=== PATIENT | male | born 1965 | race Caucasian/White ===

== ENCOUNTER 2017-11-09 16:11 | Emergency (ER) | payer OTHER ==
[~2017-11-09] VITALS: Ht 185.4 cm; Wt 127.0 kg
[~2017-11-09 16:11] MED LIST: ACETAMINOPHEN325 M1 PO; ADVAIR 250-501 EACH IH; ADVAIR HFA 230M12 GM INH; ADVAIR PO; ASPIRIN 81 MG T81 MG PO; BENZTROPINE ME0.5 MG PO; CELEXA 20 MG TA20 M1 PO; COUMADIN 1MG TAB1 M1 PO; COUMADIN6 MG PO; COUMADIN7.5 MG PO; GUAIF-DM-PSE S120 ML PO; HALDOL5 MG/1 ML IM; HALOPERIDOL 5 MG5 MG PO; LATUDA80 MG PO; LISINOPRIL10 MG PO; LOPRESSOR 12.12.5 MG PO; LORAZEPAM 22 MG/1 ML IM; MAGOX 400400 MG PO; NORVASC5 MG PO; OXCARBAZEPINE300 M1 PO; OXCARBAZEPINE600 MG PO; RISPERDAL 3 MG T3 M1 PO; RISPERDAL37.5 MG/2 IM; TRILEPTAL 300300 MG PO
[2017-11-09 16:32] LABS: HEMATOCRIT 32.7 % (42.0-52.0); HEMOGLOBIN 11.5 gm/dL (14.0-18.0); MCH 33.2 pg (26.0-34.0); MCHC 35.3 g/dL (28.0-37.0); PLATELET COUNT 177 thou/uL (150-400); RBC 3.47 mil/uL (4.50-6.00); RDW 13.5 % (10.5-14.5); WBC 5.5 thou/uL (4.0-11.0)
[2017-11-09] MEDS ORDERED: TRILEPTAL 300300 MG PO (16:34)
[2017-11-09] MEDS ORDERED: ANTIVERT25 MG PO (16:35)
[2017-11-09] MEDS ORDERED: IMDUR 30 MG TAB30 M1 PO (16:38)
[2017-11-09 16:45] LABS: CALCIUM 8.6 mg/dL (8.5-10.1); CREATININE 0.8 mg/dL (0.7-1.3); POTASSIUM 4.1 mmol/L (3.5-5.1)
[2017-11-09 16:51] LABS: ALBUMIN 3.5 g/dL (3.4-5.0); TOTAL BILIRUBIN 0.5 mg/dL (<0.1-1.0); TOTAL PROTEIN 6.6 g/dL (6.4-8.2)
[2017-11-09 17:03] LABS: ANISOCYTOSIS 1+; BURR CELLS 1+
[2017-11-09 18:00] LABS: INR 1.8; PROTIME 17.8 Seconds (9.3-11.4)
[2017-11-09 18:18] LABS: URINE BILIRUBIN NEGATIVE (Negative); URINE BLOOD 1+ (Negative); URINE CLARITY CLEAR; URINE COLOR YELLOW; URINE GLUCOSE-RANDOM* NEGATIVE (Negative); URINE KETONES NEGATIVE (Negative); URINE PROTEIN (DIPSTICK) TRACE (Negative); URINE UROBILINOGEN 0.2 E.U./dl (0.2-1.0)
[2017-11-09 18:20] LABS: URINE LEUKOCYTES-REFLEX 3+ (Negative); URINE NITRITE-REFLEX POSITIVE (Negative)
[2017-11-09 18:35] LABS: BACTERIA-REFLEX >30 Many /HPF (None Seen); CASTS None Seen /LPF (None Seen); CRYSTALS None Seen /LPF (None Seen); SQUAMOUS 4-10 Moderate /LPF (0-3); URINE RBC 3-10 Few /HPF (0-2)
[2017-11-09 18:36] LABS: WBC CLUMPS Moderate (None Seen)
[2017-11-09] MEDS ORDERED: BACTRIM DS TAB1 EACH PO (18:55)
== END 2017-11-09 19:54 ==
LOC: ER 16:11
PROVIDERS: Physician Assistant
DX: E87.1 Hypo-osmolality and hyponatremia (principal); D53.9 Nutritional anemia, unspecified; N39.0 Urinary tract infection, site not specified; E11.9 Type 2 diabetes mellitus without complications; I48.91 Unspecified atrial fibrillation; I10 Essential (primary) hypertension; F41.9 Anxiety disorder, unspecified; J44.9 Chronic obstructive pulmonary disease, unspecified

== ENCOUNTER 2018-03-19 14:49 | Emergency (ER) | payer OTHER ==
[~2018-03-19] VITALS: Ht 205.7 cm; Wt 104.3 kg
[~2018-03-19 14:49] MED LIST changes: +ANTIVERT25 MG PO; +BACTRIM DS TAB1 EACH PO; +IMDUR 30 MG TAB30 M1 PO
[2018-03-19 16:20] LABS: ABSOLUTE NEUTROPHILS 2.8 thou/uL (1.4-8.2); EOSINOPHILS 0.9 % (0.0-3.0); HEMATOCRIT 28.7 % (42.0-52.0); HEMOGLOBIN 10.4 gm/dL (14.0-18.0); LYMPHOCYTES 25.2 % (24.0-44.0); MCH 33.4 pg (26.0-34.0); MCHC 36.1 g/dL (28.0-37.0); MCV 92.4 fL (80.0-100.0); MONOCYTES 11.1 % (1.0-8.0); PLATELET COUNT 180 thou/uL (150-400); POLYS 61.8 % (36.0-66.0); RBC 3.11 mil/uL (4.50-6.00); RDW 13.3 % (10.5-14.5); WBC 4.6 thou/uL (4.0-11.0)
[2018-03-19 16:27] LABS: CALCIUM 8.5 mg/dL (8.5-10.1); CREATININE 0.7 mg/dL (0.7-1.3)
[2018-03-19 16:33] LABS: ALBUMIN 3.3 g/dL (3.4-5.0); TOTAL BILIRUBIN 0.5 mg/dL (<0.1-1.0); TOTAL PROTEIN 6.3 g/dL (6.4-8.2)
[2018-03-19 16:41] LABS: PROTIME 76.5 Seconds (9.3-11.4)
[2018-03-19 16:43] LABS: INR 7.7
== END 2018-03-19 17:50 | disposition home or self-care (01) ==
LOC: ER 14:49
PROVIDERS: Physician Assistant
DX: I82.402 Acute embolism and thrombosis of unspecified deep veins of left lower extremity (principal); R79.1 Abnormal coagulation profile; E87.1 Hypo-osmolality and hyponatremia; E11.9 Type 2 diabetes mellitus without complications; I48.91 Unspecified atrial fibrillation; F20.9 Schizophrenia, unspecified; I10 Essential (primary) hypertension; F41.9 Anxiety disorder, unspecified; J44.9 Chronic obstructive pulmonary disease, unspecified

== ENCOUNTER 2018-09-06 19:46 | Inpatient (IN) | payer OTHER ==
[~2018-09-06] VITALS: Ht 190.5 cm; Wt 117.9 kg
[2018-09-06 19:48] VITALS: BP 140/101
[2018-09-06 20:20] LABS: ABSOLUTE NEUTROPHILS 2.1 thou/uL (1.4-8.2); EOSINOPHILS 2.1 % (0.0-3.0); HEMATOCRIT 32.4 % (42.0-52.0); HEMOGLOBIN 11.3 gm/dL (14.0-18.0); LYMPHOCYTES 38.5 % (24.0-44.0); MCH 32.7 pg (26.0-34.0); MCHC 34.7 g/dL (28.0-37.0); MCV 94.1 fL (80.0-100.0); PLATELET COUNT 136 thou/uL (150-400); POLYS 49.4 % (36.0-66.0); RBC 3.45 mil/uL (4.50-6.00); RDW 14.3 % (10.5-14.5); WBC 4.3 thou/uL (4.0-11.0)
[2018-09-06 20:27] LABS: CALCIUM 8.5 mg/dL (8.5-10.1); CREATININE 0.9 mg/dL (0.7-1.3); POTASSIUM 4.1 mmol/L (3.5-5.1)
[2018-09-06 20:40] LABS: INR 1.8; PROTIME 18.7 Seconds (9.3-11.4)
[2018-09-06 20:57] LABS: URINE BILIRUBIN NEGATIVE (Negative); URINE BLOOD NEGATIVE (Negative); URINE CLARITY CLEAR; URINE COLOR YELLOW; URINE GLUCOSE-RANDOM* NEGATIVE (Negative); URINE KETONES NEGATIVE (Negative); URINE PROTEIN (DIPSTICK) TRACE (Negative)
[2018-09-06 20:59] LABS: URINE LEUKOCYTES-REFLEX 2+ (Negative); URINE NITRITE-REFLEX POSITIVE (Negative)
[2018-09-06 21:05] LABS: AMP/METHAMP Negative (Negative); BARBITURATES Negative (Negative); BENZODIAZEPINES Negative (Negative); COCAINE Negative (Negative); METHADONE Negative (Negative); OPIATES Negative (Negative); PCP Negative (Negative)
[2018-09-06 21:12] LABS: CASTS None Seen /LPF (None Seen); MUCUS None Seen strn/LPF (None Seen); SQUAMOUS 0-3 Few /LPF (0-3); TRANSITIONAL EPITHEL CELL 0-3 Few /LPF (None Seen); URINE WBC-REFLEX >25 Many /HPF (0-5); WBC CLUMPS Few (None Seen)
[2018-09-06 21:13] LABS: BACTERIA-REFLEX >30 Many /HPF (None Seen); CRYSTALS None Seen /LPF (None Seen); URINE RBC 0-2 Rare /HPF (0-2)
[2018-09-07 00:18] VITALS: BP 130/90
[2018-09-07 01:04] VITALS: BP 144/91
--- NOTE | 2018-09-07 02:14 | NUR ---
PT WAS ADMITTED TO THE UNIT FROM THE ER IN A FAIR CONDITION.PT WAS LETHARGIC BUT EASILY AROUSABLE ON ADMIT.ASSESSMENT PARTIALLY DONE DUE TO PT'S MENTAL STATUS.PT INCONT OF BLADDER.PT ON HIS BED AT THIS TIME.FALL PRECAUTIONS IN PLACE,CALL LIGHT WITHIN REACH.
[2018-09-07 06:04] LABS: CALCIUM 8.6 mg/dL (8.5-10.1); CREATININE 0.7 mg/dL (0.7-1.3); POTASSIUM 4.4 mmol/L (3.5-5.1)
[2018-09-07 06:37] VITALS: BP 174/95
[2018-09-07 07:25] VITALS: BP 163/95
--- NOTE | 2018-09-07 10:16 | NUR ---
ASSUMED PT CARE AT 0700. ASSESSMENT COMPLETED AND IS CHARTED. BLOOD PRESSURE ELEVATED, VITALS OTHERWISE STABLE. PT IS ALERT/ORIENTED TO PERSON ONLY. PT IS VERY LETHARGIC BUT AROUNSES TO NAME AND LIGHT TOUCH. PT WAS ABLE TO WAKE UP AND EAT AND TAKE MEDS. PT DENIES PAIN. EXTERNAL URINARY CATHETER ORDERED FOR PT HE IN INCONTINENT AND POLYURIC. PT FLOODS ENTIRE BED WHEN URINATING. OTHERWISE NO NEW CONCERNS AT THIS TIME, WILL CONTINUE WITH CURRENT CARE.
[2018-09-07] MEDS ORDERED: RISPERDAL25 MG/2 ML IM (11:24)
[2018-09-07] MEDS ORDERED: RISPERDAL50 MG/2 ML IM (11:25)
[2018-09-07] MEDS ORDERED: COUMADIN 4 MG TA4 M1 PO (11:26)
[2018-09-07] MEDS ORDERED: COUMADIN 2.5MG2.5 M1 PO (11:26)
[2018-09-07] MEDS ORDERED: OXYBUTYNIN 5 MG5 M1 PO (11:27)
--- NOTE | 2018-09-07 12:06 | NUR ---
PT ADMITTED RELATED TO AMS. CM REVIEWED CHART AND SPOKE WITH CARE TEAM. CM ATTEMPTED TO VISIT WITH PT BUT HE HAS THE COVERS PULLED UP OVER HIS HEAD AND DIDN'T RESPOND TO KNOCKING. CM CALLED PT'S DPOA SISTER PATRICIA RIZZO WHO RESIDES IN [place] . SHE INDICATED SHE HADN'T BEEN NOTIFIED THAT HE WS IN THE HOSPITAL. SHE INDICATED HE HAS LIVED AT [facility] FOR ABOUT 10 YEARS AND THAT THEY WOULD ANTICIPATE PT RETURNING THERE UPON DISCHARGE. 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 SHE STATED THAT SUN, YAIR, TUES SHE CAN BE REACHED AT THE ABOVE NUMBER OR AT AND ASKE HER FOR. SHE WILL NEED TO BE NOTIFED PRIOR TO PT RETURNING TO [facility]. CLINICAL UPDATE SENT TO THE FACILITY. CM TO FOLLOW INDICATED WITH DC PLANNING.
--- NOTE | 2018-09-07 16:06 | NUR ---
PT MORE AWAKE THIS AFTERNOON. SITTING UP IN BED WATCHING TV. ROOM AIR O2 SAT IS 97%. IV FLUIDS DC'D ORDERED. EXTERNAL CATHETER DRAINING COPIOUS AMOUNTS OF CLEAR LIGHT YELLOW URINE. BLOOD PRESSURE BETTER AT 148/88. WILL CONTINUE TO MONITOR.
[2018-09-07 16:07] VITALS: BP 148/88
--- NOTE | 2018-09-07 17:06 | NUR ---
SHOULD PT BE MEDICALLY STABLE TO DISHARGE OVER THE WEEKEND ORDERS WILL NEED TO BE FAXED TO . CALL REPORT TO . CONTACT [employer] TO SCHEDULE TRANSPORT AT . PT'S SISTER AND DPOA WILL NEED TO BE NOTIFIED.
[2018-09-07 20:27] VITALS: BP 179/97
--- NOTE | 2018-09-08 01:13 | NUR ---
DIFFICULT TO UNDERSTAND PATIENT. HE IS ALERT TO SELF. GOT TO THE BSC -WITH SBA. HAD A LARGE BM.EXTERNAL CATH IN PLACE WITH LIGHT YELLOW OUTPUT.
[2018-09-08 04:33] VITALS: BP 162/89
[2018-09-08 04:41] LABS: INR 1.7; PROTIME 18.1 Seconds (9.3-11.4)
[2018-09-08 09:52] VITALS: BP 166/82
--- NOTE | 2018-09-08 10:59 | NUR ---
Alert and oriented to self.Assessment completed.vss.Pt in bed for breakfast. Good appetite.Dr Carias here,no new order noted.[place] catheter replaced. Pt up in chair with chair alarm on at present.No verbal c/o. Will continue to monitor.
[2018-09-08 16:45] VITALS: BP 122/75
[2018-09-08 20:07] VITALS: BP 123/91
--- NOTE | 2018-09-09 03:21 | NUR ---
PT REQUIRES SBA WITH ADLS. INCONTINENT OF BLADDER. [place] CATH CHANGED.PT IS ALERT TO SELF AND PLACE. DENIES PAIN. NO FURTHER ISSUES.
[2018-09-09 05:30] LABS: INR 1.9; PROTIME 19.5 Seconds (9.3-11.4)
[2018-09-09 05:52] VITALS: BP 174/98
--- NOTE | 2018-09-09 11:33 | NUR ---
Assumed pt care at 7am.Pt in bed resting without c/o.Assessment completed.vss. Pt tolerated meds and breakfast.Dr George here,order noted.[facility] will [facility] am.No verbal complaints at present.Will continue to monitor.
--- NOTE | 2018-09-09 23:42 | NUR ---
PT DENIED PAIN AT START OF SHIFT.PT ALERT TO SELF,DIFFICULT TO UNDERSTAND.CONDOM CATH OUT PLACED AN ORDER FOR ANOTHER ONE WILL REPLACE THIS SHIFT.PT CONT ON IV ABX ORDERED.FALL PRECAUTIONS IN PLACE,CALL LIGHT WITHIN REACH.
[2018-09-10 04:45] VITALS: BP 162/108
[2018-09-10 07:08] LABS: INR 2.1; PROTIME 21.4 Seconds (9.3-11.4)
[2018-09-10 07:20] VITALS: BP 150/86
[2018-09-10 08:13] VITALS: BP 156/86
--- NOTE | 2018-09-10 08:32 | NUR ---
ASSESMENT COMPLETED. VSS. OX1. CONFUSED. NO NOTED SOA. NO NV. EXT. CATH. PT RESTING IN BED AT THIS TIME. BED ALARM ON. WILL CONT. TO MONITOR.
[2018-09-10] MEDS ORDERED: KEFLEX500 M1 PO (10:23)
--- NOTE | 2018-09-10 11:44 | NUR ---
PT. DISCHARGING TODAY BACK [facility] FAXED DC ORDERS/SUMMARY TO FACILITY SPOKE WITH SEVEN IN ADM. SHE RECEIVED ORDERS. TRANSPORTATION SET UP BY FACILITY VIA [employer] [facility] 1500. NOTIFIED LILLI (LATANYA) OF DISCHARGE AND TIME OF TRANSPORT. DCP TRIED CALLING DPOA (PATRICIA) PT'S SISTER BUT NO ANSWER OR VOICEMAIL LILLI WILL CALL HER MOTHER (PATRICIA). UNIT NOTIFIED AND CHART COPY PER US. RN TO CALL REPORT TO [phone].
--- NOTE | 2018-09-10 14:49 | NUR ---
ATTEMPTED TO CALL REPORT TO FACILITY. LEFT MESSAGE- WAITING FOR CALL BACK.
--- NOTE | 2018-09-10 15:34 | NUR ---
REPORT CALLED IN TO FACILITY. PT DCD IN STABLE CONDITION.
== END 2018-09-10 15:29 | DRG 689 ==
LOC: ER 19:46 → 4E 22:33 → EROBS 22:33 → 4E 09-07 00:58
PROVIDERS: Emergency Medicine; Nurse Practitioner Family; ADMIT Internal Medicine
DX: N39.0 Urinary tract infection, site not specified (principal); G92 Toxic encephalopathy; F20.0 Paranoid schizophrenia; F32.9 Major depressive disorder, single episode, unspecified; F41.9 Anxiety disorder, unspecified; B96.20 Unspecified Escherichia coli [E. coli] as the cause of diseases classified elsewhere; I48.2 Chronic atrial fibrillation; I10 Essential (primary) hypertension; E11.9 Type 2 diabetes mellitus without complications; I25.10 Atherosclerotic heart disease of native coronary artery without angina pectoris; J44.9 Chronic obstructive pulmonary disease, unspecified; J45.909 Unspecified asthma, uncomplicated; Z87.820 Personal history of traumatic brain injury; I25.2 Old myocardial infarction; Z86.718 Personal history of other venous thrombosis and embolism; Z79.01 Long term (current) use of anticoagulants
CPT/HCPCS: 10084